=== PATIENT | male | born 1950 | race Caucasian/White ===

== ENCOUNTER 2021-04-26 09:29 | Emergency (ER) | payer OTHER ==
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
[2021-04-26] MEDS ORDERED: Lactated Ringers 500 ML IV ONE (10:04)
[2021-04-26] MEDS ORDERED: Iopamidol 612 MG/ML 100 ML Bottle IVPUSH ONE (10:13)
[2021-04-26] MEDS ORDERED: Iopamidol 612 MG/ML 50 ML SDV IVPUSH ONE (10:13)
[2021-04-26] MEDS: Sodium Chloride 0.9% 10 ML Syringe FLUSH PRN ×2 (10:49→11:05)
--- NOTE | 2021-04-26 10:51 | CT ---
Head CT Technique: Multiple axial sections through the brain were obtained. Intravenous contrast was not utilized. Reconstructed coronal and sagittal images were also obtained. Comparison: No prior intracranial imaging is available. Findings: Ventricles along with basal cisterns and sulci over convexities are mildly prominent. No abnormal parenchymal densities are seen. No evidence of intracranial hemorrhage is seen. No midline shift or mass-effect is appreciated. Bone window settings were reviewed. Mucosal thickening is noted within both maxillary sinuses and minimal mucosal thickening is noted within the ethmoid sinuses. Mastoid sinuses are clear. No acute calvarial abnormality is appreciated. Impression: 1. Mild chronic sinusitis is noted within both maxillary sinuses and minimally within the ethmoid sinus. 2. Mild generalized atrophy. 3. No acute intracranial abnormality is appreciated. Diagnostic code #2
--- NOTE | 2021-04-26 10:54 | CT ---
CT cervical spine Technique: Multiple axial sections were obtained from above C1 inferiorly to the top of T2. Reconstructed coronal and sagittal images were obtained. Comparison: No prior cervical spine imaging is available. Findings: Vertebral body heights and disc spaces are maintained. Mild degenerative change is noted between the dens and anterior arch of C1. Ligamentum nuchal calcification is noted. Minimal right-sided neural foraminal stenosis is noted at C4-5. Other neural foramina are patent. No central canal stenosis is seen. Minimal degenerative change is noted within the uncovertebral joints at C3-4 and C4-5. No fracture or abnormal subluxation is seen. Impression: 1. Minimal degenerative change. Ligamentum nuchal calcification is noted. 2. No acute fracture or subluxation is seen. Diagnostic code #2
--- NOTE | 2021-04-26 11:09 | CT ---
CT chest Technique: Multiple axial sections were obtained from above the lung apices inferiorly through the lung bases. Intravenous contrast was utilized. Reconstructed coronal and sagittal images were also obtained. Comparison: No prior chest imaging is available. Findings: Mediastinum and hilar regions show no adenopathy. No axillary adenopathy is seen. No pericardial thickening is seen. Very minimal coronary artery calcification is noted. Lung window settings were reviewed. No acute parenchymal process is seen. No pleural effusions are noted. No pneumothorax is seen. There is mild respiratory motion artifact being noted. Bone window settings were reviewed which show no acute osseous abnormality. Impression: 1. No acute abnormality is identified on CT study of the chest. Diagnostic code #2 CT abdomen and pelvis Technique: Multiple axial sections were obtained from above the dome of the diaphragm inferiorly through the pubic symphysis. Intravenous contrast was utilized. No oral contrast was given. Reconstructed coronal and sagittal images were obtained. Delayed images were also obtained through the bladder. Comparison: No prior abdominal imaging is available. Findings: Three very small low density lesions are seen within the right and left lobes of the liver. These are too small to get accurate Hounsfield unit measurements but most likely represent minimal cysts. Gallbladder contains no calcified gallstones. Spleen size is normal. Small amount of accessory splenic tissue is noted. Adrenal glands show no nodule. Pancreas is within normal limits. Kidneys show symmetric contrast enhancement. Right kidney shows two small cysts with the largest cyst measuring 1.7 cm. Left kidney shows a single small cyst measuring 1.3 cm. Delayed images show contrast within the distal ureters and within the bladder. Abdominal aorta shows no aneurysm. No retroperitoneal adenopathy is seen. Appendix is seen which is normal. Prior abdominal wall surgery is seen. No pelvic mass or adenopathy is seen. Slight prostate calcification is noted. Mild fat-containing bilateral inguinal hernias are noted. Bone window settings were reviewed which show mild degenerative change within the spine which is most prominent at L5-S1. Minimal degenerative change is seen within the sacroiliac joints. No definite acute osseous abnormality is appreciated. Impression: 1. Small abnormalities within the liver with no Hounsfield unit measurements being obtained. These are most likely due to small cysts. 2. Other findings believed to be incidental as noted above. 3. No acute abnormality is appreciated on CT study of the abdomen and pelvis. Diagnostic code #2
--- NOTE | 2021-04-26 11:28 | CR ---
Left elbow: 4 views left elbow were obtained. Comparison: No prior left elbow studies available. Soft tissue swelling is identified. Joint spaces are maintained. No joint effusion is seen. No acute fracture, dislocation or other bony abnormality is appreciated. Impression: 1. Soft tissue swelling. 2. No acute bony abnormality is seen on left elbow study. Diagnostic code #2
--- NOTE | 2021-04-26 11:34 | CR ---
Left forearm: 2 views of the left forearm were obtained. Comparison: No prior left forearm study is available. Soft tissue swelling is seen within the forearm and around the elbow. No acute fracture or other bony abnormality is appreciated. Impression: 1. Soft tissue swelling. 2. No acute osseous abnormality is seen on left forearm study. Diagnostic code #2
--- NOTE | 2021-04-26 11:34 | CR ---
Left humerus: AP and lateral views of the left humerus were obtained. Comparison: No prior left humerus study is available. Soft tissue swelling is seen distally. Minimal degenerative change is noted within the acromioclavicular joint. No acute fracture or other acute osseous abnormality is appreciated. Impression: 1. Soft tissue swelling. Mild degenerative change. 2. No acute bony abnormality is seen on left humerus study. Diagnostic code #2
[2021-04-26] MEDS ORDERED: Diphtheria,Pertussis(Acell),Tetanus Vaccine 0.5 ML Syringe IM ONE (12:51)
== END 2021-04-26 13:15 | disposition home or self-care (01) ==
LOC: JD.ED 09:29
DX: S20.212A Contusion of left front wall of thorax, initial encounter (principal); S50.02XA Contusion of left elbow, initial encounter; S39.91XA Unspecified injury of abdomen, initial encounter; V29.9XXA Motorcycle rider (driver) (passenger) injured in unspecified traffic accident, initial encounter
CPT/HCPCS: 36415; 70450; 71260; 72125; 73060; 73080; 73090; 74177; 80053; 85025; 99284; J7120; Q9967